=== PATIENT | female | born 1990 | race Caucasian/White ===

== ENCOUNTER 2022-05-02 19:25 | Inpatient (IN) | payer OTHER ==
[2022-05-02] MEDS: LACTATED RINGERS 1,000 ML IV SCH (19:36)
[2022-05-02] MEDS ORDERED: LANOLIN CREAM 5 GM TUBE TOPICAL PRN (19:59)
[2022-05-02] MEDS ORDERED: HYDROCORTISONE 2.5% RECTAL CREAM 30 GM TUBE RECTAL PRN (19:59)
[2022-05-02] MEDS ORDERED: ACETAMINOPHEN TAB 325 MG TAB PO PRN (19:59)
[2022-05-02] MEDS ORDERED: diphenhydrAMINE 25 MG CAP PO PRN (19:59)
[2022-05-02] MEDS ORDERED: ZOLPIDEM 5 MG TAB PO PRN (19:59)
[2022-05-02] MEDS ORDERED: IBUPROFEN 600 MG TAB PO PRN (19:59)
[2022-05-02] MEDS ORDERED: BENZOCAINE/MENTHOL SPRAY 1 GM/SPRAY AEROSOL TOPICAL PRN (19:59)
[2022-05-02] MEDS ORDERED: diphenhydrAMINE 50 MG CAP PO PRN (19:59)
[2022-05-02] MEDS ORDERED: OXYTOCIN 30 UNITS/500 ML NS 30 UNIT in SALINE 1 500ML.BAG IV SCH (20:00)
--- NOTE | 2022-05-02 20:12 | P.HPOB ---
History of Present Illness H&P Date: 05/02/22 Chief Complaint: Normal vaginal delivery 31-year-old today status post normal vaginal delivery presents to labor and delivery via EMS. Patient presents after delivering a full-term viable female in her car by herself in the parking lot of the school during her son's football practice. When she presented the placenta was still inside but she soon delivered spontaneously. Her bleeding has been minimal. Patient denies nausea, vomiting, chest pain, shortness of breath or any calf pain. She states she did have very limited care in either [place] or [place]; she knows the name of the person who is taking care of her but she seems a little confused about where she got care. Review of Systems All systems: negative Constitutional: Denies chills, Denies fever Eyes: denies blurred vision, denies pain Ears, nose, mouth and throat: Denies headache, Denies sore throat Cardiovascular: Denies chest pain, Denies shortness of breath Respiratory: Denies cough Gastrointestinal: Denies abdominal pain, Denies diarrhea, Denies nausea, Denies vomiting Genitourinary: Denies dysuria, Denies hematuria Musculoskeletal: Denies myalgias Integumentary: Denies pruritus, Denies rash Neurological: Denies numbness, Denies weakness Psychiatric: Denies anxiety, Denies depression Endocrine: Denies fatigue, Denies weight change Past Medical History Past Medical History: No Reported History Additional Past Medical History / Comment(s): Patient has had 2 previous vaginal deliveries and 1 miscarriage. This was her third vaginal delivery. She said she did get some care and does have labs which will be documented in nursing care. Medications and Allergies Home Medications Medication Instructions Recorded Confirmed Type No Known Home Medications 05/02/22 05/02/22 History Allergies Allergy/AdvReac Type Severity Reaction Status Date / Time No Known Allergies Allergy Verified 05/02/22 19:59 Exam Osteopathic Statement: *. No significant issues noted on an osteopathic structural exam other than those noted in the History and Physical/Consult. Intake and Output 05/02/22 05/02/22 05/02/22 06:59 14:59 22:59 Other: Weight 67.132 kg Heart: Regular rate and rhythm Lungs: Clear to auscultation bilaterally Abdomen: Soft, nontender, fundus firm and 3 fingerbreadths below the umbilicus. Extremities: Negative Homans sign Assessment and Plan (1) Status post normal vaginal delivery Current Visit: Yes Status: Acute Code(s): [id number] - SNOMED Code(s): 960257016 Plan: 1. care
[2022-05-02 20:56] LABS: Basophils % (A) 0 %; Eosinophils # (A) 0.1 k/uL (0-0.7); Eosinophils % (A) 1 %; HCT 37.8 % (34.0-46.0); HGB 13.4 gm/dL (11.4-16.0); Lymphocytes # (A) 0.7 k/uL (1.0-4.8); Lymphocytes % (A) 6 %; MCH 33.1 pg (25.0-35.0); MCHC 35.3 g/dL (31.0-37.0); MCV 93.7 fL (80.0-100.0); Mean Platelet Volume 8.5; Monocytes # (A) 0.6 k/uL (0-1.0); Monocytes % (A) 5 %; Neutrophils # (A) 10.7 k/uL (1.3-7.7); Neutrophils % (A) 86 %; Platelet Count 186 k/uL (150-450); RBC 4.04 m/uL (3.80-5.40); WBC 12.4 k/uL (3.8-10.6)
[2022-05-02] MEDS: SENNOSIDES-DOCUSATE SODIUM 1 EACH TAB PO SCH (23:45)
[2022-05-03] MEDS: LACTATED RINGERS 1,000 ML IV SCH (03:42)
--- NOTE | 2022-05-03 08:53 | P.DS ---
Providers Date of admission: 05/02/22 19:25 Expected date of discharge: 05/03/22 Attending physician: Ingris Walker Primary care physician: Stated None - Discharge Diagnosis(es) (1) Status post normal vaginal delivery Current Visit: Yes Status: Acute Hospital Course: Patient presented after a normal vaginal delivery in her car. She presented by EMS and soon thereafter delivered the placenta. Her course has been uncomplicated. She denies nausea, vomiting, chest pain, shortness of breath or any calf pain. Her lochia is minimal. Patient will be discharged home day #1 in stable condition to follow-up with me in 6 weeks. Plan - Discharge Summary New Discharge Prescriptions: New Ibuprofen [Motrin] 600 mg PO Q6HR PRN #30 tab PRN Reason: Mild Pain (Scale 1 To 3) Discharge Medication List Ibuprofen [Motrin] 600 mg PO Q6HR PRN #30 tab 05/03/22 [Rx] Follow up Appointment(s)/Referral(s): Ingris Walker DO [Doctor of Osteopathic Medicine] - 6 Weeks Discharge Disposition: HOME SELF-CARE
[2022-05-03] MEDS: SENNOSIDES-DOCUSATE SODIUM 1 EACH TAB PO SCH (20:27)
[2022-05-04 08:21] VITALS: BP 128/81; PULSE 83; RESP 14; TEMP 98
[2022-05-04] MEDS: SENNOSIDES-DOCUSATE SODIUM 1 EACH TAB PO SCH (12:46)
== END 2022-05-04 14:32 | disposition home or self-care (01) | DRG 776 ==
LOC: 4FBP 19:25
PROVIDERS: ADMIT Obstetrics & Gynecology; ATTEND Obstetrics & Gynecology
DX: Z39.0 Encounter for care and examination of mother immediately after delivery (principal)
CPT/HCPCS: 85025; 86850; 86900; 86901